=== PATIENT | female | born 1965 | race African-American/Black ===

== ENCOUNTER 2025-01-20 03:29 | Emergency (ER) | payer SELFPAY ==
[~2025-01-20] VITALS: Ht 165.1 cm; Wt 96.0 kg
[2025-01-20 03:36] VITALS: O2SAT 97
[2025-01-20 04:54] LABS: BASOPHILS % 0.4 % (0.0-2.0); EOSINOPHILS % 1.5 % (0.0-5.0); HEMATOCRIT. 42.2 % (36.0-48.0); HEMOGLOBIN. 13.7 g/dL (12.0-16.0); LYMPHOCYTES % 19.3 % (20.0-50.0); MEAN PLATELET VOLUME 7.9 fl (7.4-10.4); MONOCYTES % 10.0 % (2.0-8.0); NEUTROPHILS % 68.8 % (40.0-76.0); PLATELET 249 x1000/uL (130-400); RED BLOOD CELL COUNT 5.32 mill/uL (4.2-5.4); RED CELL DISTRIBUTION WIDTH 16.3 % (11.6-14.6)
[2025-01-20 05:07] LABS: CREATININE 1.1 mg/dL (0.6-1.0)
[2025-01-20 05:08] LABS: ETHANOL BLOOD < 10 mg/dL (<10); UREA NITROGEN BLOOD 18 mg/dL (9-23)
[2025-01-20 05:09] LABS: ASPARTATE AMINOTRANSFERASE 17 IU/L (<34)
[2025-01-20 05:10] LABS: BILIRUBIN DIRECT < 0.1 mg/dL (<=3.0); BILIRUBIN TOTAL 0.3 mg/dL (0.1-1.0); PROTEIN TOTAL 7.4 g/dL (6.0-8.3)
[2025-01-20] MEDS: TAMSULOSIN HCL 0.4MG SR CAPSULE PO ONE (05:25)
[2025-01-20] MEDS: ONDANSETRON HCL 4MG/2ML INJ IV ONE (05:32)
[2025-01-20] MEDS: MORPHINE SULFATE 4 MG/ML INJ (FOR IV/IM USE) IV ONE (05:33)
[2025-01-20 05:46] LABS: CLARITY URINE CLOUDY (CLEAR); COLOR URINE YELLOW (YELLOW); GLUCOSE URINE 3+ (NEGATIVE); KETONES URINE TRACE (NEGATIVE); LEUKOCYTE ESTERASE URINE 2+ (NEGATIVE); NITRITE URINE NEGATIVE (NEGATIVE); OCCULT BLOOD URINE 3+ (NEGATIVE); PH URINE 5.5 (4.5-8.0); PROTEIN URINE TRACE (NEGATIVE); SPECIFIC GRAVITY URINE 1.027 (1.005-1.030); UROBILINOGEN URINE 1.0 E.U./dL (0.2-1.0)
[2025-01-20] MEDS: SODIUM CHLORIDE 0.9% 500 ML IV ONE (05:49)
[2025-01-20] MEDS ORDERED: ONDA4TAB50 MT (05:50)
[2025-01-20] MEDS ORDERED: TAMS-54 MT (05:50)
[2025-01-20] MEDS ORDERED: IBUP-2029 MT (05:50)
[2025-01-20] MEDS ORDERED: CEPH500C2 MT (05:50)
[2025-01-20] MEDS: CEPHALEXIN 250MG CAPSULE PO NR (06:01)
[2025-01-20] MEDS ORDERED: HYDR-4001 PO (06:01)
[2025-01-20 06:13] LABS: *AMPHETAMINES SCREEN URINE NEGATIVE (NEGATIVE); *BARBITURATES SCREEN URINE NEGATIVE (NEGATIVE); *BENZODIAZEPINES SCREEN URINE NEGATIVE (NEGATIVE); *COCAINE SCREEN URINE NEGATIVE (NEGATIVE); CANNABINOID URINE SCREEN NEGATIVE (NEGATIVE); ECSTASY MDMA SCREEN URINE NEGATIVE (NEGATIVE); METHADONE URINE SCREEN NEGATIVE (NEGATIVE); OPIATES URINE SCREEN NEGATIVE (NEGATIVE); PHENCYCLIDINE URINE SCREEN NEGATIVE (NEGATIVE)
[2025-01-20 06:20] VITALS: TEMP 36.9
[2025-01-20 06:49] VITALS: BP 137/77; PULSE 80; RESP 23; O2SAT 94
[2025-01-20 07:24] LABS: SQUAMOUS EPITHELIAL CELL URINE 2+ /lpf (RARE/1+)
[2025-01-20 07:25] LABS: RBC URINE 50-100 /hpf (0-2); WBC URINE 50-100 /hpf (0-2)
[2025-01-20 07:26] LABS: BACTERIA URINE 1+
== END 2025-01-20 06:57 | disposition home or self-care (01) ==
LOC: ER 03:29
DX: R10.32 Left lower quadrant pain (principal); N13.2 Hydronephrosis with renal and ureteral calculous obstruction; E11.9 Type 2 diabetes mellitus without complications; E78.00 Pure hypercholesterolemia, unspecified; Z90.49 Acquired absence of other specified parts of digestive tract; Z91.018 Allergy to other foods; Z79.899 Other long term (current) drug therapy
CPT/HCPCS: 80076; 80305; 80048; 81003; 80320; 83690; 85025; 87086; 87186; 87077; 36415; 74176; 96374; 96375; 99285; J2405; J2270; J7040; Z7610 ×2; A4606; G0480